=== PATIENT | male | born 1965 | race Two or more races ===

== ENCOUNTER 2019-05-28 15:01 | Emergency (ER) | payer OTHER ==
[~2019-05-28] VITALS: Ht 165.1 cm; Wt 81.6 kg
--- NOTE | 2019-05-28 15:05 | NUR ---
PT [facility] TO ER, IN CUSTODY - NEEDS CLEARANCE PRIOR TO BOOKING " RUNNING AWAY FROM THE [employer]ORATIVE [employer]" JUMP OVER THE DEX WIRE". PT ENDORSES BLE PAIN 01/23. PT STATES HE HAS SQUEEZING CHEST PAIN FOR A WEEK NON RADIATING. PT CONNECTED TO THE FURNITURE INSTALLER AND OPX
--- NOTE | 2019-05-28 15:32 | NUR ---
Patient discharged to pd in stable condition. Written and verbal after care instructions given. Patient verbalizes understanding of instruction.
[2019-05-28 15:34] VITALS: BP 110/68
== END 2019-05-28 15:34 ==
LOC: ER 15:04
DX: Z02.89 Encounter for other administrative examinations (principal); F17.200 Nicotine dependence, unspecified, uncomplicated